=== PATIENT | male | born 1960 | race Caucasian/White ===

== ENCOUNTER 2016-03-30 08:27 | Day surgery (SDC) | payer MEDICARE, OTHER ==
[2016-03-24 11:19] VITALS: BMI 23.5
[2016-03-30 09:41] VITALS: RESP 16; TEMP 97.8
[2016-03-30] MEDS ORDERED: LACTATED RINGERS 1,000 ML IV ONE (09:51)
[2016-03-30] MEDS ORDERED: IOHEXOL 180 MG/ML 1 ML ML ONE (10:35)
[2016-03-30] MEDS ORDERED: BUPIVACAINE (PF) 0.5% 30 ML VIAL ONE (10:35)
[2016-03-30] MEDS ORDERED: TRIAMCINOLONE ACETONIDE 40 MG/ML 1 ML VIAL ONE (10:35)
[2016-03-30] MEDS ORDERED: fentaNYL (PF) 50 MCG/ML 2 ML AMP ONE (10:35)
[2016-03-30] MEDS ORDERED: MIDAZOLAM 2 MG/2 ML VIAL ONE (10:35)
--- NOTE | 2016-03-30 11:06 | FL ---
EXAMINATION TYPE: FL guided pain mgmt statistic DATE OF EXAM: 03/30/2016 10:55 AM FLUOROSCOPY Fluoroscopy time of 2 seconds was used during right SI joint injection. 2 image/s document/s the pro cedure.
[2016-03-30 11:13] VITALS: BP 118/78; PULSE 78
[2016-03-30] MEDS ORDERED: IV FLUID CONTINUATION 1,000 ML IV ONE (11:15)
[2016-03-30] MEDS ORDERED: LACTATED RINGERS 1,000 ML IV SCH (12:15)
--- NOTE | 2016-04-10 12:46 | P.PCN ---
Date of Procedure: 03/30/16 Anesthesia: [facility] – [place] Surgeon: Evan Quinonez Pathology: none sent Condition: stable Disposition: PACU Description of Procedure: PREOPERATIVE DIAGNOSIS: 1-Bilateral sacroiliitis. 2 Lumbar DDD POSTOPERATIVE DIAGNOSIS:. 1-Bilateral sacroiliitis. 2 Lumbar DDD PROCEDURES: Right Sacroiliac joint steroid injection with fluoroscopy ANESTHESIA: Local with 1% lidocaine; Conscious sedation with Versed/fentanyl. EBL: Minimal. PROCEDURE INDICATIONS: This patient with a history of low back pain secondary to sacroiliitis and lumbar DDD unresponsive to conservative management. Patient does not use any blood thinning medications. PROCEDURE DESCRIPTION: The patient was seen and identified in the preoperative area. Risks, benefits, complications, and alternatives were discussed with the patient (including but not limited to incomplete pain relief, bleeding, infection, nerve damage, and allergies to medications), the patient agreed to proceed with the procedure and signed the consent after all questions were answered. Patient was taken to the OR and time out was completed to verify proper patient , position, laterality of pain, and allergies. Pt was placed in the prone position and a pillow was placed under the abdomen to reduce lumbar lordosis. The lumbosacral area was prepped and draped in the usual sterile fashion. Critical pause was taken. Vital signs were closely monitored during the procedure. The fluoroscopic camera was placed in contralateral oblique view and right sacroiliiac joint lower pole was identified. After local infiltration with 1% lidocaine 2 ml, Subsequently, a 22-gauge 3.5 inch spinal needle was introduced into the posteroinferior aspect of the right sacroiliac joint under direct fluoroscopic visualization. Subsequently, 3 ml of a solution of a total of 3 ml solution containing total 2 mL of 0.5% preservative-free bupivacaine mixed with 40 mg of Kenalog was injected after negative aspiration for CSF, blood, and air and negative for paresthesia. Needle was withdrawn intact. Skin was cleansed, and bandages were applied. COMPLICATIONS: None. COMMENTS: DISPOSITION / PLANS: The patient was placed in a supine position and transferred to the recovery area in a stable condition for observation and was discharged from the recovery room after meeting discharge criteria. Home discharge instructions given to the patient by the staff. The patient was reexamined prior to discharge. The patient will schedule a follow up in clinic in 4-6 weeks.
== END 2016-03-30 11:27 | disposition home or self-care (01) ==
LOC: ORPAIN 08:27
PROVIDERS: ATTEND Anesthesiology
DX: M54.5 Low back pain (principal); M25.551 Pain in right hip; Z79.1 Long term (current) use of non-steroidal anti-inflammatories (NSAID); Z79.891 Long term (current) use of opiate analgesic; Z79.899 Other long term (current) drug therapy; Z88.8 Allergy status to other drugs, medicaments and biological substances
CPT/HCPCS: J2250; J3301; Q9965; J3010; G0260; 27096

== ENCOUNTER → 2016-04-27 | Outpatient (CLI) | payer MEDICARE, OTHER ==
[2016-04-27 14:47] VITALS: BP 135/90; PULSE 84; RESP 18
--- NOTE | 2016-04-28 21:32 | P.PN ---
Subjective This is follow-up visit for this patient with a history of severe and chronic low back pain and he was diagnosed with sacroiliitis, we have done sacroiliac joint steroid injections 2 first on January and then later on we did in February 2016, she didn't get good pain relief for 2-3 weeks after each injection and the pain came back,, and is currently on pain medications 1-Sterling 10/325 every 6 hours 2-Lyrica . 75 mg 3 times a day 3- baclofen 10 mg 3 times a day. 4-Motrin 600 mg 3 times a day Patient denies any side effects of the medication, denies excessive drowsiness or sleepiness, denies suicidal ideation, and reports that the current pain medication is NOT helping To control the pain and improve activity of daily living Physical Examinations : 1-Constitutiona : Cooperative , not in acute distress . 2-HEENT : nech ; supple , no Lymphadenopathy , no Thyromegaly , normal thyroid size . eyes : no ptosis , no icterus, no photophobia . ENT : normal of hearing , normal oropharynx , no Thrush . 3- Respiratory : Chest clear to auscultations Bilaterally , no wheezing , no Rhonchi . 4- Cardiovascular : regular rate and rhythem , S1 , S2 , no S3 , no S4. 5- Gastrointestinal : abdomen soft no tenderness , bowel sounds positive all four quadrents , no organomegally . 6- Genitourinary : Defferred . 7- neurologic : Cranial nerve II to XII intact , no focal neurological deffecit . 8-psychatric : alert , oriented X 3 , appropriate affect , intact judgment and insight . 9-Lymphatic : no Lymphadenopathy . 10- musculoskeltal : exams of the cervical spine = motor strength normal bilateral upper extremities exams of the Lumber spine = motor strength lower extremities ,thigh and legs .5/5 deep tendon reflexes : normal Knee Jerk , normal ankle Jerk . lumber facet Loading Test positive Sever tenderness over the Sacroiliac joint on the Right Assessment and plan = -Chronic low back pain secondary to right sacroiliitis, she had good results after the right sacroiliac joint steroid injection done twice but that was only for short time (few weeks after each injection ), patient will be good candidate to have right-sided L5-S1 dorsal ramus radiofrequency , and right- sided S1 S2 S3 lateral branches radiofrequency, procedure risk and benefits and alternatives were discussed with the patient and he agreed with the preceding - diagnoses, prognosis, and treatment options including but not limited to physical therapy, surgical interventions, interventional therapies and medication management including narcotics and adjuvant medication were discussed with the patient and all questions answered to the patient's satisfaction
== END | disposition home or self-care (01) ==
LOC: PNWHC3 13:26
PROVIDERS: ATTEND Specialist
DX: G89.29 Other chronic pain (principal); M46.1 Sacroiliitis, not elsewhere classified; Z79.899 Other long term (current) drug therapy
CPT/HCPCS: 99211

== ENCOUNTER 2016-06-08 12:11 | Day surgery (SDC) | payer MEDICARE, OTHER ==
[2016-06-08 12:44] VITALS: RESP 16; TEMP 98
[2016-06-08] MEDS: LACTATED RINGERS 1,000 ML IV SCH ×2 (12:46→13:09)
[2016-06-08] MEDS ORDERED: fentaNYL (PF) 50 MCG/ML 2 ML AMP ONE (13:14)
[2016-06-08] MEDS ORDERED: MIDAZOLAM 2 MG/2 ML VIAL ONE (13:14)
[2016-06-08] MEDS ORDERED: TRIAMCINOLONE ACETONIDE 40 MG/ML 1 ML VIAL ONE (13:14)
[2016-06-08] MEDS ORDERED: BUPIVACAINE (PF) 0.5% 30 ML VIAL ONE (13:14)
[2016-06-08] MEDS ORDERED: IV FLUID CONTINUATION 1,000 ML IV ONE (14:05)
--- NOTE | 2016-06-08 14:06 | P.PCN ---
Date of Procedure: 06/08/16 Procedure(s) Performed: PREOPERATIVE DIAGNOSIS: 1-Lumbosacral spondylosis with facet arthropathy without myelopathy. 2-Right sacroiliit. post operative Diagnosis: 1-Lumbosacral spondylosis with facet arthropathy without myelopathy. 2-Right sacroiliit. PROCEDURES: 1- Right radiofrequency thermocoagulation/ablation of the L5 dorsal ramus. 2- Right multi-site radiofrequency thermocoagulation/ablation of the S1, S2, and S3 lateral branchs. The procedure was performed using fluoroscopic guidance during needle placement to assure proper position and maximize safety . ANESTHESIA: LOCAL ANESTHESIA with Marcaine 0.5% 8 mL and IV sedation with versed 2 mg and Fentanyle 100 mcg EBL: NONE INDICATION/MEDICAL NECESSITY: History of low back pain secondary to right sacroiliitis and lumbosacral arthropathy unresponsive to more conservative treatments. The patient reported more than 50% relief of pain symptoms following 2 previous diagnostic blocks with Bupivacaine. PROCEDURE DESCRIPTION: The patient was seen and identified in the preoperative area. Risks, benefits, complications, and alternatives were discussed with the patient. The patient agreed to proceed with the procedure and signed the consent. Vital signs were checked before and after the procedure and they remained stable. Patient ambulated to the procedure room and time out was completed. The patient was placed in the prone position on the procedure table and a pillow was placed under the abdomen to reduce lumbar lordosis. The lumbosacral area was prepped and draped in the usual sterile fashion. Critical pause was taken. L5 Dorsal Ramus RF: Using right oblique fluoroscopy, the junction of the transverse process and the superior articular process of the right S1 vertebra, which correspond to the fluoroscopic image of the "eye of the Doug dog" was identified. Subsequently, a 10-cm 20 -gauge radiofrequency cannula with a 10-mm active tip was advanced under fluoroscopic guidance until contact was made with periosteum. At this level, the Sensory testing of the L5 dorsal ramus was performed at 50 Hz and 0 to 1 volt with production of concordant pain starting at 0.5 volt. Motor stimulation was done at 2.5 Hz with stimulation of mulitifidus muscle contration . No radicular symptoms or paresthesias were produced during the testing. Subsequently, the L5 dorsal ramus was subjected to a radiofrequency ablation at 80 degree celsius for 90 seconds . after 0.5% Bupivacaine 1 ml injected at each level after negative aspirations . The needle was withdrawn intact. S1, S3, and S3 Lateral Branch RF: The lateral margins of the Right S1, S2, and S3 foramina were identified using AP fluoroscopy. Under fluoroscopic guidance, three 10-cm 20 -gauge radiofrequency cannula with a 10-mm active tip were inserted at 8-10 mm peripheral to the posterior S1 foramen, at various locations using clock-face coordinates. The center of the clock was registered at the lateral margin of the foramen. The 2:30, 4:00, and 5:30 oclock positions were used. At this level , the sensory testing of the S1 lateral branch was performed at 50 Hz and 0 to 1 volt at the three levels with production of concordant pain starting at 0.5 volt. Motor stimulation was done at 2.5 Hz. No radicular symptoms or paresthesias were produced during the testing. Subsequently, the S1 lateral branch was subjected to a radiofrequency ablation at a mode of 90 seconds at 80 degrees Celsius at the 3 levels after negative motor and sensory testing and after injecting 0.5 ml of preservative free Bupivacaine 0.5 %. The same procedure was performed at the level of the S2 foramen. For the S3 foramen, only the 2:30 and 4:00 oclock positions were used. Sensory and motor testing followed by radiofrequency ablation were performed as described for the S1 and S2 foramina. The needle was withdrawn intact after each injection. COMPLICATIONS: The patient tolerated the procedure well without any acute complications. DISPOSTION/PLAN: The patient ambulated to the recovery area after the procedure in a stable condition for observation. Patient was reexamined prior to discharge. Patient was observed for 30 minutes in the recovery area and was discharged home, accompanied by an adult, after meeting discharged criteria. Discharge instructions were give to the patient by the staff. Patient was specifically instructed not to drive today and to rest for the rest of the day. The patient will schedule a follow up visit in the clinic in weeks or earlier if needed.
--- NOTE | 2016-06-08 14:16 | FL ---
EXAMINATION TYPE: FL guided pain mgmt statistic DATE OF EXAM: 06/08/2016 2:01 PM CLINICAL HISTORY: Low back and sacral pain. TECHNIQUE: Fluoroscopy. COMPARISON: None. FINDINGS: Fluoroscopic guidance was provided during pain relief procedure performed by Dr. Soler . A total of 13 seconds of fluoroscopic time was utilized during the procedure and several spot imag es are acquired. Images acquired shows needle localization in the lower lumbar spine and sacrum at m ultiple levels. IMPRESSION: As Above.
[2016-06-08 14:19] VITALS: BP 109/70; PULSE 82
== END 2016-06-08 14:56 | disposition home or self-care (01) ==
LOC: ORPAIN 12:11
PROVIDERS: ATTEND Specialist
DX: M47.817 Spondylosis without myelopathy or radiculopathy, lumbosacral region (principal); M46.97 Unspecified inflammatory spondylopathy, lumbosacral region; M46.1 Sacroiliitis, not elsewhere classified; Z88.8 Allergy status to other drugs, medicaments and biological substances
CPT/HCPCS: 64640 ×2; 64635; 99152; 99153 ×2; J2250; J3301; J3010

== ENCOUNTER → 2018-10-14 | Outpatient (CLI) | payer MEDICARE, OTHER ==
[2018-10-14 13:36] VITALS: BP 134/83; PULSE 62; RESP 16
--- NOTE | 2018-10-15 15:34 | P.PAINPG ---
Subjective Progress Note Date: 10/14/18 This is follow-up visit for this 58-year-old male patient with a history of severe and chronic low back pain and he was diagnosed with sacroiliitis, we have done sacroiliac joint steroid injections 2 followed by SI joint radiofrequency ablation done in May 2016. He returns today for follow-up. Today, he reports that approximately one month ago, he was walking up a hill and he stepped into a small hole. Since then he has bilateral low back pain radiating to bilateral groins, right worse than left. Pain is described as sharp. He was recently switched from [place] to Percocet by his PCP Dr. Ibarra , and reports no significant relief from this. Pain is worse with sitting, standing for too long. Pain is better with movement, using a spot. Pain is rated as 7-8 on 10 today. Of note, the patient has not had any recent imaging. Patient denies any side effects of the medication, denies excessive drowsiness or sleepiness, denies suicidal ideation, and reports that the current pain medication is NOT helping To control the pain and improve activity of daily living Review of systems is negative for chest pain, shortness of breath, new onset weakness, numbness/tingling, abdominal pain, malaise, fever, night sweats, chills, homicidal or suicidal ideation, or bowel or bladder incontinence. Physical exam: Vitals: Reviewed in EMR GENERAL: Well appearing, in no acute distress PSYCH: Mood and affect is appropriate. Awake, alert, and oriented SKIN: Skin color, texture, turgor normal, no rashes or lesions HEENT: Normocephalic, atraumatic. EOM intact CV: No pedal edema RESP: Respirations are unlabored, no audible wheezing GI: Abdomen non-distended MUSCULOSKELETAL: Bilateral upper and lower extremity strength is normal and symmetric. No atrophy or tone abnormalities are noted. Lumbar spine: Straight leg raising in the sitting position is negative for radicular pain. No pain to palpation over the lumbar spine and paraspinous muscles. Negative for pain with facet loading and back extension/rotation. Normal range of motion without pain reproduction Buttocks: No pain to palpation over the PSIS, sacroiliac joint maneuvers are negative for pain. Extremities: Peripheral joint ROM is full and pain free without obvious instability or laxity in all four extremities. No edema or skin discolorations noted. Gait: Gait is normal NEUR: Bilateral lower extremity coordination and muscle stretch reflexes are physiologic and symmetric. Negative clonus bilaterally. No loss of sensation is noted. Assessment and plan = Acute onset low back pain radiating to bilateral groins. Patient denies red flag signs. Physical exam is reassuring. We will obtain lumbar spine x-rays and lumbar spine MRI to further evaluate current pain complaint. -Right sacroiliitis: Patient has experienced good relief in the past from SI joint radiofrequency ablation. Follow-up: After lumbar MRI obtained PQRS Measure Charge Sheet Measure #130: Documentation of Current Meds in Medical Chart: Patient's medications documented in chart Measure #226: Tobacco Use: Screen & Cessation Intervention: Pt screened for tobacco use AND intervention given Measure #111: Pneumonia Vaccination: Pneumococcal vaccine NOT administered or previously given Measure #47: Advance Care Plan: Advance care planning discussed & documented, pt chose/unable to give Measure #412: Opioid Treatment Agreement: No documentation of signed opioid treatment agreement Measure #317: Preventitive Care & Scrn High Bld Press & F/U: Normal blood pressure, f/u not required Measure #128: Body Mass Index (BMI) Screening & Follow-up: BMI documented within normal parameters Measure #131: Pain Assessment & Follow-up: Pain positive & plan documented, Follow-up scheduled Measure #431: Unhealthy Alcohol Use Preventative Care & Scrn: Patient not identified as an unhealthy alcohol user PQRS Narrative: Smoking Status Current every day smoker Hx Alcohol Use (MH) Yes: OCC. Home Medications: Ambulatory Orders Ibuprofen 600 mg PO Q8H PRN 08/24/15 oxyCODONE-APAP 10-325MG [Percocet 10-325 mg] 1 tab PO Q4HR PRN 10/14/18 Controlled Substance Measures - Controlled Substance Measures Is patient prescribed a controlled substance at discharge?: No
== END | disposition home or self-care (01) ==
LOC: PNWHC3 12:35
PROVIDERS: ATTEND Anesthesiology
DX: G89.29 Other chronic pain (principal); M54.16 Radiculopathy, lumbar region; M46.1 Sacroiliitis, not elsewhere classified; F17.200 Nicotine dependence, unspecified, uncomplicated; Z98.890 Other specified postprocedural states; Z79.891 Long term (current) use of opiate analgesic
CPT/HCPCS: 99211

== ENCOUNTER → 2018-10-25 | Outpatient (CLI) | payer MEDICARE, OTHER ==
--- NOTE | 2018-10-25 13:59 | XR ---
Lumbar spine HISTORY: Trauma, back pain 3 views of the lumbar spine Correlation prior exam 04/07/2012 There is multilevel spondylosis. Lumbar vertebral bodies show preserved height and alignment. There i s loss of disc height L4-5, L5-S1, L1-2. Sclerosis present in the posterior elements. Vascular calcif ications noted in the aortoiliac distribution. Possible sclerotic focus at the right sacral measuring 9 mm. IMPRESSION: Degenerative disc disease and facet arthropathy. Indeterminate area of increased attenuat ion over the right sacrum is an interval finding and is indeterminate. No fracture or subluxation.
--- NOTE | 2018-10-25 15:58 | MR ---
EXAMINATION TYPE: MR lumbar spine wo con DATE OF EXAM: 10/25/2018 COMPARISON: Film same date HISTORY: Chronic LBP, BLE radic TECHNIQUE: Multiplanar, multisequence images of the lumbar spine were acquired. L1-L2: Lateral extension of disc material towards the right causes foraminal encroachment, suspect a lateral disc herniation. No significant central stenosis. L2-L3: Posterior broad-based disc bulge causes mild anterior mass effect on the thecal sac. No eviden t spinal stenosis. Right-sided foraminal encroachment present due to lateral extension endplate disc complex. L3-L4: Posterior broad-based disc bulge causes mild anterior mass effect on the thecal sac. Mild cent ral stenosis. No significant foraminal encroachment on the right, circumferential extension endplate disc complex encroaches somewhat on the left neural foramen. Facet arthropathy with hypertrophy ligam entum flavum causes some minimal posterior lateral mass effect on the thecal sac. L4-L5: Central posterior disc herniation causes anterior mass effect on the thecal sac. There is mode rate central stenosis. Circumferential extension endplate disc complex encroaches somewhat on the mc ral foramen greater on the right. L5-S1: Posterior central disc herniation causes anterior mass effect on the thecal sac, mild central stenosis. Circumferential extension of endplate disc complex encroaches somewhat on the foramina. The re may be some encroachment on the lateral recesses due to facet arthropathy change. Lumbar segments are intact. No paraspinal masses are identified. Conus medullaris has a normal appe arance. Minimal retrolisthesis grade 1 L5-S1. Lumbar vertebral bodies show preserved height and align ment. There is multilevel spondylosis with minimal endplate discogenic marrow signal change. Loss of disc height signal at intervertebral levels is compatible with disc desiccation and degenerative disc disease. Short pedicles may contribute to cause multilevel spinal stenosis. IMPRESSION: Degenerative disc disease, facet arthropathy, multilevel foraminal encroachment as described.
== END | disposition home or self-care (01) ==
LOC: RADMRIMAIN 13:22
PROVIDERS: ATTEND Anesthesiology
DX: M51.36 Other intervertebral disc degeneration, lumbar region (principal); M46.96 Unspecified inflammatory spondylopathy, lumbar region
CPT/HCPCS: 72100; 72148

== ENCOUNTER → 2018-10-28 | Outpatient (CLI) | payer MEDICARE, OTHER ==
[2018-10-28 12:14] VITALS: BP 133/78; PULSE 72; RESP 16
--- NOTE | 2018-10-28 15:41 | P.PAINPG ---
Subjective Progress Note Date: 10/28/18 This is a follow-up visit for this 58-year-old male patient with a history of severe and chronic low back pain and he was diagnosed with sacroiliitis, we have done sacroiliac joint steroid injections 2 followed by SI joint radiofrequency ablation done in May 2016. He was last seen in clinic on 10/14/2018, and at that time a lumbar spine x-ray and MRI were ordered. See results below. He returns today for follow-up. He reports that approximately one and a half month ago, he was walking up a hill and he stepped into a small hole. Since then he has bilateral low back pain radiating to bilateral buttock and groins, left worse than right. Pain is described as sharp. He was recently switched from [place] to Percocet by his PCP Dr. Ibarra , and reports no significant relief from this. Pain is worse with sitting, standing for too long. Pain is better with movement. He also reports that recently he has right-sided neck stiffness, he has benefited greatly from trigger point injections in the past and is asking if this could be repeated. Review of systems is negative for chest pain, shortness of breath, new onset weakness, numbness/tingling, abdominal pain, malaise, fever, night sweats, chills, homicidal or suicidal ideation, or bowel or bladder incontinence. Physical exam: Vitals: Reviewed in EMR GENERAL: Well appearing, in no acute distress PSYCH: Mood and affect is appropriate. Awake, alert, and oriented SKIN: Skin color, texture, turgor normal, no rashes or lesions HEENT: Normocephalic, atraumatic. EOM intact CV: No pedal edema RESP: Respirations are unlabored, no audible wheezing GI: Abdomen non-distended MUSCULOSKELETAL: Bilateral upper and lower extremity strength is normal and symmetric. No atrophy or tone abnormalities are noted. Cervical spine: Tenderness to palpation of right cervical paraspinal musculature. Normal range of motion. Negative Spurling sign. Lumbar spine: Straight leg raising in the sitting position is positive on the left side for radicular pain. No pain to palpation over the lumbar spine and paraspinous muscles. Negative for pain with facet loading and back extension/rotation. Normal range of motion without pain reproduction Buttocks: No pain to palpation over the PSIS, sacroiliac joint maneuvers are neg ative for pain. Extremities: Peripheral joint ROM is full and pain free without obvious instability or laxity in all four extremities. No edema or skin discolorations noted. Gait: Gait is normal NEUR: Bilateral lower extremity coordination and muscle stretch reflexes are physiologic and symmetric. Negative clonus bilaterally. No loss of sensation is noted. Imaging: Lumbar spine x-ray done on 10-25-2018 at [place] shows no acute fractures. Possible sclerotic focus at right sacrum. Lumbar spine MRI done on 10-25-2018 at [place] shows degenerative disc disease, facet arthropathy and multilevel neuroforaminal encroachment. Short pedicles may contribute to multilevel canal stenosis. At L2-3, right greater than left neuroforaminal stenosis, at L3-4 left greater than right neuroforaminal stenosis. At L4-5 moderate central canal stenosis and right greater than left neuroforaminal stenosis. At L5-S1 mild central canal stenosis with bilateral neuroforaminal stenosis. Assessment and plan = Lumbar radiculopathy, lumbar spondylosis, lumbar degenerative disc disease: We'll schedule L4-5 epidural steroid injection, left paramedian approach Cervical myofascial pain: Will schedule right cervical paraspinals, trapezius, rhomboids trigger point injection -Right sacroiliitis: Patient has experienced good relief in the past from SI joint radiofrequency ablation. Patient was counseled on the importance of smoking cessation as it pertains to Gen. health as well as specifically to chronic pain Patient was instructed to follow up with his PCP regarding right sacral sclerotic focus seen on x-ray Follow-up: For above-mentioned procedure PQRS Measure Charge Sheet Measure #130: Documentation of Current Meds in Medical Chart: Patient's medications documented in chart Measure #226: Tobacco Use: Screen & Cessation Intervention: Pt screened for tobacco use AND intervention given Measure #111: Pneumonia Vaccination: Pneumococcal vaccine NOT administered or previously given Measure #47: Advance Care Plan: Advance care planning discussed & documented, pt chose/unable to give Measure #412: Opioid Treatment Agreement: No documentation of signed opioid treatment agreement Measure #317: Preventitive Care & Scrn High Bld Press & F/U: Normal blood pressure, f/u not required Measure #128: Body Mass Index (BMI) Screening & Follow-up: BMI documented within normal parameters Measure #131: Pain Assessment & Follow-up: Pain positive & plan documented, Follow-up scheduled Measure #431: Unhealthy Alcohol Use Preventative Care & Scrn: Patient not identi fied as an unhealthy alcohol user PQRS Narrative: Smoking Status Current every day smoker Hx Alcohol Use (MH) Yes: OCC. Home Medications: Ambulatory Orders Ibuprofen 600 mg PO Q8H PRN 08/24/15 oxyCODONE-APAP 10-325MG [Percocet 10-325 mg] 1 tab PO Q4HR PRN 10/14/18 Controlled Substance Measures - Controlled Substance Measures Is patient prescribed a controlled substance at discharge?: No
== END | disposition home or self-care (01) ==
LOC: PNWHC3 11:41
PROVIDERS: ATTEND Anesthesiology
DX: G89.29 Other chronic pain (principal); M51.16 Intervertebral disc disorders with radiculopathy, lumbar region; M47.26 Other spondylosis with radiculopathy, lumbar region; M46.1 Sacroiliitis, not elsewhere classified; M54.2 Cervicalgia; F17.200 Nicotine dependence, unspecified, uncomplicated; Z98.890 Other specified postprocedural states
CPT/HCPCS: 99211

== ENCOUNTER 2018-11-04 06:17 | Day surgery (SDC) | payer MEDICARE, OTHER ==
[2018-10-30 10:36] VITALS: BMI 24.7
[~2018-11-04 06:17] MED LIST: LACTATED RINGERS 1,000 ML IV SCH
[2018-11-04] MEDS ORDERED: LACTATED RINGERS 1,000 ML IV ONE (07:00)
[2018-11-04 07:39] VITALS: RESP 16; TEMP 96.9
[2018-11-04] MEDS ORDERED: IV FLUID CONTINUATION 1,000 ML IV ONE ×2 (07:54)
--- NOTE | 2018-11-04 07:58 | FL ---
EXAMINATION TYPE: FL guided pain mgmt statistic DATE OF EXAM: 11/04/2018 HISTORY: Pain 3 FILMS 2 SEC FL
[2018-11-04 08:16] VITALS: BP 113/74; PULSE 62
--- NOTE | 2018-11-04 08:44 | P.PCN ---
Date of Procedure: 11/04/18 Procedure(s) Performed: PREOPERATIVE DIAGNOSIS: 1- Lumbar radiculopathy, Lumbar Degenerative Disc Diseases 2-Lumbar spondylosis with Facet arthropathy without myelopathy POSTOPERATIVE DIAGNOSIS: 1-Lumber Degenerative Disc Diseases 2-Lumbar spondylosis with Facet arthropathy without myelopathy PROCEDURE 1. Lumbar epidural steroid injection under fluoroscopic guidance at the L4-5 level using a left paramedian approach 2. Lumbar epidurogram. ANESTHESIA: Local with 1% lidocaine 3 ml, moderate sedation with intravenous Versed and fentanyl Fluoroscopy was used for the procedure and images were saved in the radiology portion of the chart. EBL: Minimal PROCEDURE INDICATION: The patient with low back pain and radiculitis symptoms unresponsive to conservative treatment. Fluoroscopy was used to optimize visualization of the needle placement and to maximize safety. PROCEDURE DESCRIPTION / TECHNIQUE: The patient was seen and identified in the preoperative area. Risks, benefits, complications including but not limited to infections ,bleeding ,allergic reaction to the medications ,nerve damage and incomplete pain releif , and alternatives were discussed with the patient. The patient agreed to proceed with the procedure and signed the consent. IV was started, and vital signs were stable. Patient was taken to the OR and time out was completed. The patient was placed in the prone position on procedure table and a pillow was placed under the abdomen to reduce lumbar lordosis. The lumbosacral area was prepped and draped in the usual sterile fashion. Vitals were closely monitored during the procedure. Conscious sedation was used during the procedure to decrease patients anxiety. Using anterior-posterior fluoroscopy, the L4-5 interlaminar space was identified and the skin over this site was marked and then infiltrated with 1% lidocaine subcutaneously. Subsequently, a 20-gauge 3.5" Tuohy epidural needle was inserted and advanced toward the epidural space using the loss of resistance technique and guided by AP and lateral/ oblique fluoroscopy. The correct needle position in the epidural space was verified with the injection of 2 mL of the water soluble contrast dye Isovue 200 contrast under live fluoroscopy, observing an excellent epidurogram. Then, after negative aspiration for blood and CSF and in the absence of paresthesias, a 5 ml mixture containing 80 mg of Depo-medrol , 3 ml of preservative free Normal Saline, and 1 ml of preservative free lidocaine 1% solution was injected and a washout epidurogram was seen. Needle was withdrawn intact, skin was cleansed, and bandages were applied. COMPLICATIONS: None Then, my attention was turned to the trigger point injections in the neck. Procedure below: Preoperative Diagnosis: myofascial pain syndrome of bilateral cervical paraspinals, rhomboids, trapezius Postoperative diagnosis: Same Indications for procedure: This is a patient with myofascial pain and palpable trigger points in bilateral cervical paraspinals, rhomboids, trapezius muscles. The patient consents for an injection after an explanation of risks including but not limited to bleeding and infection, benefits, and alternatives and the patient has signed a consent form indicating understanding of all of them. Description of procedure: After informed consent was obtained the patient's back was sterilely prepped in the usual fashion with ChloraPrep. 8 trigger points were identified via palpation of the indicated muscles and marked sterilely. Each trigger point was injected with a 25-gauge half inch needle, with 1 mL of solution consisting of ropivacaine 0.5%. The patient's vital signs were stable afterwards and the procedure was tolerated well. DISPOSITION / PLANS: The patient was placed in a supine position and transferred to the recovery area in a stable condition for observation. There was no evidence of lower extremity motor or sensory deficit after the procedure. Patient was discharged from the recovery room after meeting discharge criteria. Home discharge instructions were given to the patient by the staff. The patient will schedule a follow up in the clinic in 4 weeks.
== END 2018-11-04 08:22 | disposition home or self-care (01) ==
LOC: ORPAIN 06:17
PROVIDERS: ATTEND Anesthesiology
DX: M51.16 Intervertebral disc disorders with radiculopathy, lumbar region (principal); M47.26 Other spondylosis with radiculopathy, lumbar region; M79.18 Myalgia, other site; M48.061 Spinal stenosis, lumbar region without neurogenic claudication; M48.07 Spinal stenosis, lumbosacral region; M46.1 Sacroiliitis, not elsewhere classified; Z79.891 Long term (current) use of opiate analgesic; Z79.1 Long term (current) use of non-steroidal anti-inflammatories (NSAID)
CPT/HCPCS: 62323; 20553; J2250; J1030; J3010; Q9966; 99152

== ENCOUNTER → 2018-12-02 | Outpatient (CLI) | payer MEDICARE, OTHER ==
[2018-12-02 12:38] VITALS: BP 124/82; PULSE 84; RESP 18
--- NOTE | 2018-12-02 13:25 | P.PAINPG ---
Subjective Progress Note Date: 12/02/18 This is a follow-up visit for this 58 years old male, with chronic history of severe low back pain patient diagnosed with lumbar herniated disc disease and lumbar spondylosis and lumbar facet arthropathy, and sacroiliitis, and he had severe neck pain related trigger point injection, patient here for follow-up visit. He reported that he has significant improvement of his low back pain but he continued to have low back pain with radiation to the right buttock, and he had some neck pain, with radiation to the right shoulder blade area, he denies any motor or sensory deficits he is able to ambulate, he denies any fever or night sweats. Denies any change in bowel movements or urination, currently he uses Percocet and Motrin he is getting prescription refills from his primary care and he denies any side effects of the medication Objective - Vital Signs Vital signs: Vital Signs Temp Pulse 84 12/02/18 12:31 Resp 18 12/02/18 12:31 BP 124/82 12/02/18 12:31 Pulse Ox 99 12/02/18 12:31 Intake & Output 12/01/18 12/02/18 12/02/18 18:59 06:59 18:59 Weight 73.482 kg - Exam Physical Examinations : -Constitutiona : Cooperative , not in acute distress . -HEENT : nech : supple , no Lymphadenopathy , normal thyroid size . eyes : no ptosis , no icterus, no photophobia . ENT : normal of hearing , normal oropharynx , no Thrush . - Respiratory : Chest clear to auscultations Bilaterally , no wheezing , no Rhonchi . - Cardiovascula : regular rate and rhythem , S1 , S2 , no S3 , no S4. - Gastrointestina : abdomen soft no tenderness , bowel sounds , no organomegally . - Genitourinary : Defferred . - neurologic : Cranial nerve II to XII intact , no focal neurological deffecit . -psychatric : alert , oriented X 3 , appropriate affect , intact judgment and insight . -Lymphatic : no Lymphadenopathy . - musculoskeltal : Cervical Spine motor stregnth in the deltoid and biceps, normal right side , normal Left side motor stregnth biceps and the wrist extensors normal right side ,normal left side . motor stregnth in the triceps muscle . normal Right side , normal Left side Trigger point identified in the right trapezius rhomboid and shoulder blade area. Lumber spine moter stegnth lower extremities ,thigh and legs 5/5 Right side , 5/5 Left side deep tendon reflexes : normal Knee Jerk , normal ankle Jerk positive lumber facet Loading Test Range of motion of the lumbar spine Flexion 30 degrees, extension 10 degrees strait leg raising test , positive at 45degree Fabere test positive RT and positive LT . Sever tenderness over the Sacroiliac joint on the Right Gaenslen test positive on the right side Seated flexion test positive on the right Assessment and Plan Assessment: Assessment and plan=1 lumbar herniated disc disease 2-lumbar spondylosis with lumbar facet arthropathy 3-right sacroiliitis 4-myofascial pain syndrome right-sided cervical area, and shoulder blade area. Patient could benefit from repeat lumbar epidural steroid injection at L4 5 levels , and he could benefit from trigger point injections right- sided cervical paravertebral muscles and shoulder blade area. In the future if patient continues to have right buttock pain, he will be good candidate to have a repeat RFA of the right sacroiliac joint (Done previously May 2016 ) Avery continue to use Percocet and Motrin and is getting prescription refills from his primary care Time with Patient: Less than 30 PQRS Measure Charge Sheet Measure #130: Documentation of Current Meds in Medical Chart: Patient's medications documented in chart Measure #226: Tobacco Use: Screen & Cessation Intervention: Pt screened for tobacco use AND intervention given Measure #111: Pneumonia Vaccination: Pneumococcal vaccine NOT administered or previously given Measure #47: Advance Care Plan: Advance care planning discussed & documented, pt chose/unable to give Measure #412: Opioid Treatment Agreement: No documentation of signed opioid treatment agreement Measure #408: Opioid Therapy Follow-up Evaluation: Patient had NO f/u eval minimum every 3 months during opioid therapy Measure #317: Preventitive Care & Scrn High Bld Press & F/U: Normal blood pressure, f/u not required Measure #128: Body Mass Index (BMI) Screening & Follow-up: BMI documented within normal parameters Measure #131: Pain Assessment & Follow-up: Pain positive & plan documented, Follow-up scheduled Measure #431: Unhealthy Alcohol Use Preventative Care & Scrn: Patient not identified as an unhealthy alcohol user PQRS Narrative: Smoking Status Current every day smoker Blood Pressure 124/82 Pain Intensity [Lower Back] 8 Scale Used Numeric (1 - 10) Hx Alcohol Use (MH) Yes: OCC. Home Medications: Ambulatory Orders Ibuprofen 600 mg PO Q8H PRN 08/24/15 oxyCODONE-APAP 10-325MG [Percocet 10-325 mg] 1 tab PO Q4HR PRN 10/14/18 Prendisone 1 tab PO DIRECTED 12/02/18 Controlled Substance Measures - Controlled Substance Measures Is patient prescribed a controlled substance at discharge?: No
== END ==
LOC: PNWHC3 12:02
PROVIDERS: ATTEND Specialist
DX: M51.26 Other intervertebral disc displacement, lumbar region (principal); M47.816 Spondylosis without myelopathy or radiculopathy, lumbar region; M46.96 Unspecified inflammatory spondylopathy, lumbar region; M46.1 Sacroiliitis, not elsewhere classified; M79.18 Myalgia, other site; Z79.1 Long term (current) use of non-steroidal anti-inflammatories (NSAID); Z79.891 Long term (current) use of opiate analgesic; Z79.899 Other long term (current) drug therapy; F17.200 Nicotine dependence, unspecified, uncomplicated
CPT/HCPCS: 99211

== ENCOUNTER 2018-12-17 07:23 | Day surgery (SDC) | payer MEDICARE, OTHER ==
[2018-12-16 08:58] VITALS: BMI 24.6
[2018-12-17 07:47] VITALS: TEMP 97.5
[2018-12-17] MEDS ORDERED: IV FLUID CONTINUATION 1,000 ML IV ONE (08:48)
--- NOTE | 2018-12-17 08:48 | P.PCN ---
Date of Procedure: 12/17/18 Procedure(s) Performed: PREOPERATIVE DIAGNOSIS: Lumbar radicular pain POSTOPERATIVE DIAGNOSIS: Same PROCEDURE Lumbar epidural steroid injection under fluoroscopic guidance at the L4-L5 level. ANESTHESIA: Local with 1% lidocaine 3 ml; moderate sedation with 1 mg of midazolam and 50 g of fentanyl EBL: Minimal PROCEDURE INDICATION: Lumbar radicular pain. PROCEDURE DESCRIPTION / TECHNIQUE: The patient was seen and identified in the preoperative area. Risks, benefits, complications including but not limited to infections ,bleeding ,allergic reaction to the medications ,nerve damage and not complete pain relief , and alternatives were discussed with the patient. The patient agreed to proceed with the procedure and signed the consent. IV was started, and vital signs were stable. Patient was taken to the OR and time out was completed. The patient was placed in the prone position on procedure table and a pillow was placed under the abdomen to reduce lumbar lordosis. The lumbosacral area was prepped and draped in the usual sterile fashion. The patient was closely monitored during the procedure. Conscious sedation was used during the procedure to decrease patients anxiety. Vital signs was monitored during the entire procedure. Using anterior-posterior fluoroscopy, the L4-L5 interlaminar space was identified and the skin over this site was marked and then infiltrated with 1% lidocaine subcutaneously. Subsequently, a 20-gauge Tuohy epidural needle was inserted and advanced toward the epidural space using the loss of resistance technique and guided by AP and lateral fluoroscopy. The correct needle position in the epidural space was verified. After negative aspiration, a solution containing 80 mg of Depo-Medrol, 2 mL of preservative-free 1% lidocaine, 2 mL of preservative-free normal saline was injected. The needle was withdrawn intact, skin was cleansed, and bandages were applied. Images were saved to the chart. COMPLICATIONS: None Preoperative Diagnosis: myofascial pain syndrome of right cervical paraspinals, trapezius, rhomboids Postoperative diagnosis: Same Anesthesia: Local Physician: Dayron Estimated blood loss: 0 ml Indications for procedure: The patient consents for an injection after an explanation of risks including but not limited to bleeding and infection, benefits, and alternatives and the patient has signed a consent form indicating understanding of all of them. Description of procedure: After informed consent was obtained the patient's back was sterilely prepped in the usual fashion with ChloraPrep. 6 trigger points were identified via palpation of the XX muscles and marked sterilely. Each trigger point was injected with a 25-gauge half inch needle, with 1 mL of .5 ropivicaine for total 6 mls. The patient's vital signs were stable afterwards and the procedure was tolerated well. Patient was discharged home with follow-up instructions. He will follow up in clinic in a few weeks.
[2018-12-17 09:03] VITALS: PULSE 78; RESP 18
[2018-12-17 09:08] VITALS: BP 137/78
--- NOTE | 2018-12-17 09:18 | FL ---
EXAMINATION TYPE: FL guided pain mgmt statistic DATE OF EXAM: 12/17/2018 FLUOROSCOPY Fluoroscopy time of 5 seconds was used during lumbar epidural steroid injection. 2 image/s document/ s the procedure.
== END 2018-12-17 09:18 | disposition home or self-care (01) ==
LOC: ORPAIN 07:23
PROVIDERS: ATTEND Student in an Organized Health Care Education/Training Program
DX: M54.16 Radiculopathy, lumbar region (principal); M79.18 Myalgia, other site; Z88.8 Allergy status to other drugs, medicaments and biological substances
CPT/HCPCS: 20553; 62323; J2250; J1030; J3010; Q9966; 99152

== ENCOUNTER → 2019-01-21 | Outpatient (CLI) | payer MEDICARE, OTHER ==
[2019-01-21 13:25] VITALS: BP 134/86; PULSE 73; RESP 15
--- NOTE | 2019-01-21 14:12 | P.PAINPG ---
Subjective Progress Note Date: 01/21/19 This is a follow-up visit 58 years old male who had chronic low back pain. He is diagnosed with lumbar radiculopathy, lumbar spondylosis with lumbar facet arthropathy, and right sacroiliitis, recently we have done lumbar epidural steroid injections x2 , and that helps his lumbar radicular pain, and 2017 p semaj was complaining of severe low back pain mainly on the right side and we have done RFA of the right sacroiliac joint, and the patient complaining of similar pain mainly in the right-sided low back area with radiation to the right buttock, he denies any motor or sensory deficits he denies any fever or night sweats and that is no change in bowel movement or urination, currently he is using Motrin 600 mg when necessary and Percocet 10/325 every 6 hours when necessary honeys getting prescription refills from his primary care. Objective - Vital Signs Vital signs: Vital Signs Temp Pulse 73 01/21/19 13:23 Resp 15 01/21/19 13:23 BP 134/86 01/21/19 13:23 Pulse Ox - Exam Physical Examinations : -Constitutiona : Cooperative , not in acute distress . -HEENT : nech : supple , no Lymphadenopathy , normal thyroid size . eyes : no ptosis , no icterus, no photophobia . - neurologic : Cranial nerve II to XII intact , no focal neurological deffecit . -psychatric : alert , oriented X 3 , appropriate affect , intact judgment and insight . -Lymphatic : no Lymphadenopathy . - musculoskeltal : Lumber spine moter stegnth lower extremities ,thigh and legs 5/5 Right side , 5/5 Left side deep tendon reflexes : normal Knee Jerk , normal ankle Jerk positive lumber facet Loading Test Range of motion of the lumbar spine Flexion 60 degrees, extension 30 degrees strait leg raising test = negative bilaterally Fabere test= negative bilaterally. Sever tenderness over the Sacroiliac joint on the right side Gaenslen test positive on the right side. Seated flexion test positive on the right side. Assessment and Plan Plan: Assessment and plan=1-lumbar radiculopathy. 2-lumbar degenerative disc disease, 3-lumbar spondylosis with lumbar facet arthropathy. Pain improved after lumbar epidural steroid injections. 4-right sacroiliitis-patient had excellent pain relief after radiofrequency ablation of the right sacroiliac joint which was done 2 years ago Patient could benefit from repeat RFA of the right sacroiliac joint (radiofrequency thermocoagulation of the L5-S1 dorsally Ramas Hand radiofrequency thermocoagulation of the lateral branches of S1/S2/S3 ) Time with Patient: Less than 30 PQRS Measure Charge Sheet Measure #130: Documentation of Current Meds in Medical Chart: Patient's medications documented in chart Measure #226: Tobacco Use: Screen & Cessation Intervention: Pt screened for tobacco use AND intervention given Measure #111: Pneumonia Vaccination: Pneumococcal vaccine NOT administered or previously given Measure #47: Advance Care Plan: Advance care planning discussed & documented, pt chose/unable to give Measure #412: Opioid Treatment Agreement: No documentation of signed opioid treatment agreement Measure #408: Opioid Therapy Follow-up Evaluation: Patient had NO f/u eval minimum every 3 months during opioid therapy Measure #317: Preventitive Care & Scrn High Bld Press & F/U: Normal blood pressure, f/u not required Measure #128: Body Mass Index (BMI) Screening & Follow-up: BMI documented within normal parameters Measure #131: Pain Assessment & Follow-up: Pain positive & plan documented, Follow-up scheduled Measure #431: Unhealthy Alcohol Use Preventative Care & Scrn: Patient not identified as an unhealthy alcohol user PQRS Narrative: Smoking Status Current every day smoker Blood Pressure 134/86 Pain Intensity [Lower Back] 6 Pain Intensity [Neck] 6 Scale Used Numeric (1 - 10) Hx Alcohol Use (MH) Yes: OCC. Home Medications: Ambulatory Orders Ibuprofen 600 mg PO Q8H PRN 08/24/15 oxyCODONE-APAP 10-325MG [Percocet 10-325 mg] 1 tab PO Q4HR PRN 10/14/18 Controlled Substance Measures - Controlled Substance Measures Is patient prescribed a controlled substance at discharge?: No
== END | disposition home or self-care (01) ==
LOC: PNWHC3 12:39
PROVIDERS: ATTEND Specialist
DX: M51.16 Intervertebral disc disorders with radiculopathy, lumbar region (principal); M47.26 Other spondylosis with radiculopathy, lumbar region; M46.96 Unspecified inflammatory spondylopathy, lumbar region; M46.1 Sacroiliitis, not elsewhere classified; F17.200 Nicotine dependence, unspecified, uncomplicated; Z98.890 Other specified postprocedural states; Z79.899 Other long term (current) drug therapy
CPT/HCPCS: 99211

== ENCOUNTER 2019-01-30 08:53 | Day surgery (SDC) | payer MEDICARE, OTHER ==
[2019-01-28 13:13] VITALS: BMI 24.6
[2019-01-30 09:17] VITALS: TEMP 97.8
[2019-01-30] MEDS ORDERED: LACTATED RINGERS 1,000 ML IV ONE (09:17)
[2019-01-30] MEDS ORDERED: LIDOCAINE 1% 20 ML VIAL (10MG/ML) FOR IV START INTRADERMA ONE (09:18)
--- NOTE | 2019-01-30 10:50 | P.PCN ---
Date of Procedure: 01/30/19 Procedure(s) Performed: Bipolar Radiofrequency Ablation of Dorasal Ramus of L5, Lateral Branches of S1 and S2 ATTENDING PHYSICIAN: Alexx Moore MD PREOPERATIVE DIAGNOSIS: Right Sacroiliac Joint Pain/ sacroilitis POSTOPERATIVE DIAGNOSIS: same PROCEDURE PERFORMED: Bipolar Radiofrequency Ablation of Dorasal Ramus of L5, Lateral Branches of S1, S2 and S3 SIDE: Right IV SEDATION moderate sedation with Versed and fentanyl , sedation time 33 minutes ESTIMATED BLOOD LOSS: None FLUOROSCOPY WAS USED. Images were saved in the radiology portion of the chart. INDICATIONS FOR PROCEDURE: Patient has a clinical picture consistent with right sacroiliac joint dysfunction and has responded well to sacral radiofrequency ablation in the past. PROCEDURE AND FINDINGS: The patient was greeted in the pre procedure holding area. The risk, benefits and alternatives to the procedure were again reviewed with the patient and written informed consent was placed in the chart. Prior to the procedure a time out was completed, verifying correct patient, procedure, site, positioning, and implants and/or special equipment. An IV line was placed. The patient was taken to the procedure room and positioned prone on the fluoroscopy table. Routine monitors were applied including EKG leads, blood pressure cuff, and pulse oximetry. The skin was prepped with chlorhexidine and draped in the usual sterile fashion. A fluoroscopic AP view was used to identify the sacral ala and the right SI joint with the associated S1-S3 foramens medial to the SI joint line. A marker was used to judy the sacral ala and the lateral aspects of the S1-S3 foramen. Mcintosh were made 1 cm apart. Then overlying skin and subcutaneous tissues were anesthetized using a 25-gauge 1-1/2-inch needle with 1% preservative free lidocaine for a total volume of 10 mls. Under AP and lateral fluorscopic views, 18 gauge 100 mm Bipolar RF needles with a 10 mm active tip were inserted at the L5 dorsal ramus and the lateral aspects of the S1, S2 and S3 foramens and advanced until it touched os. Confirmation of position was then made with a lateral fluoroscopic view to ensure that the tips were posterior to the posterior plate of the sacrum. Motor stimulation at 2 Hz and up to 2V was conducted between sequential probes. There was no observable motor movement in the lower extremities and the patient confirmed this by self-report. After satisfactory motor testing was completed at each level, approximately 0.5 mL of 4% Lidocaine was injected to anesthetize the radiofrequency ablation target. Subsequently, bipolar radiofrequency ablation was carried out at each of the aforementioned locations with a probe temperature set to 90C for 150 seconds. A total of 8 bipolar radiofrequency lesions was done. Following lesioning the needles were removed. The needle insertion site was dressed appropriately. The patient was taken to the recovery room where they were monitored for a brief period of time. They tolerated the procedure well and were discharged home in stable condition with post procedural instructions. Follow-up will be in clinic in 4 weeks. COMPLICATIONS: None
[2019-01-30] MEDS ORDERED: IV FLUID CONTINUATION 1,000 ML IV ONE (10:55)
--- NOTE | 2019-01-30 11:03 | FL ---
EXAMINATION TYPE: FL guided pain mgmt statistic DATE OF EXAM: 01/30/2019 CLINICAL HISTORY: Low back pain. TECHNIQUE: Fluoroscopy. COMPARISON: None. FINDINGS: Fluoroscopic guidance was provided during pain relief procedure performed by Dr. Moore . A total of 8 seconds of fluoroscopic time was utilized during the procedure and 9 spot images are acqui red. Images acquired shows needle localization at several levels in the sacrum. IMPRESSION: As Above.
[2019-01-30 11:31] VITALS: BP 111/71; PULSE 70; RESP 17
== END 2019-01-30 11:31 | disposition home or self-care (01) ==
LOC: ORPAIN 08:53
PROVIDERS: ATTEND Anesthesiology
DX: G89.29 Other chronic pain (principal); M46.1 Sacroiliitis, not elsewhere classified; M47.26 Other spondylosis with radiculopathy, lumbar region; M51.16 Intervertebral disc disorders with radiculopathy, lumbar region; F17.200 Nicotine dependence, unspecified, uncomplicated; Z79.891 Long term (current) use of opiate analgesic
CPT/HCPCS: 64640 ×3; 64635; J2250; J3010; 99152; 99153

== ENCOUNTER → 2019-02-27 | Outpatient (CLI) | payer MEDICARE, OTHER ==
--- NOTE | 2019-03-03 09:02 | P.PAINPG ---
Subjective Progress Note Date: 02/27/19 This is a follow-up visit for this 59 year old male who had chronic low back pain. He is diagnosed with lumbar radiculopathy, lumbar spondylosis with lumbar facet arthropathy, and right sacroiliitis, recently we have right SI joint radiofrequency ablation. He returns today for follow-up. He reports 70% pain relief from this procedure. Currently he rates his bilateral low back pain as 3/10. He states that he no longer has pain radiating to his right lower extremity, which is a big improvement for him. Today, he is complaining of bilateral cervical neck pain radiating to his posterior occipital region and left trapezius region. He's had this pain for 19 years. He describes it as sharp. He has had cervical epidural steroid injections done in 2015 which have helped with this pain. He denies symptoms in upper extremities. He has had no changes in the symptoms since 2015. he denies any motor or sensory deficits he denies any fever or night sweats and that is no change in bowel movement or urination, currently he is using Motrin 600 mg when necessary and Percocet 10/325 every 6 hours when necessary honeys getting prescription refills from Dr. Ibarra. He does report that his Robaxin was recently discontinued. Review of systems is negative for chest pain, shortness of breath, changes in vision, changes in hearing, new onset weakness, abdominal pain, diarrhea, extreme fatigue, malaise, fever, skin changes, homicidal or suicidal ideation, or bowel or bladder incontinence. He does report some ongoing sinus issues. Objective Physical exam: Vitals: Reviewed in EMR GENERAL: Well appearing, in no acute distress PSYCH: Mood and affect is appropriate. Awake, alert, and oriented SKIN: Skin color, texture, turgor normal, no rashes or lesions HEENT: Normocephalic, atraumatic. EOM intact CV: No pedal edema RESP: Respirations are unlabored, no audible wheezing GI: Abdomen non-distended MUSCULOSKELETAL: Bilateral upper and lower extremity strength is normal and symmetric. No atrophy or tone abnormalities are noted. Neck: Tenderness to palpation over the cervical paraspinous muscles bilaterally, worse on left, tenderness to palpation of bilateral trapezius muscles, worse on left. Spurling negative, Turner's sign negative. Pain with neck flexion, extension, or lateral flexion. No obvious deformity or signs of trauma. Extremities: Peripheral joint ROM is full and pain free without obvious instability or laxity in all four extremities. No edema or skin discolorations noted. Gait: Gait is normal NEUR: Bilateral upper extremity coordination and muscle stretch reflexes are physiologic and symmetric. No loss of sensation is noted. Imaging: MRI cervical spine done in April 2013 shows a right-sided disc herniation at C4-5 and central disc herniation at C5-6 with slight narrowing of the anterior subarachnoid space. Assessment and Plan Plan: Assessment and plan=1-lumbar radiculopathy. 2-lumbar degenerative disc disease, 3-lumbar spondylosis with lumbar facet arthropathy. Pain improved after lumbar epidural steroid injections. 4-right sacroiliitis-patient had excellent pain relief after radiofrequency ablation of the right sacroiliac joint 5. Cervical degenerative disc diseasepatient has had excellent benefit from cervical epidural steroid injections done in 2014. He would likely benefit from repeat injection at C7-T1, using a left paramedian approach. We will schedule this procedure today. Medication management: Per Dr. Ibarra Patient was counseled on the importance of smoking cessation for 3 minutes. Patient was counseled to take magnesium glycinate 400 mg dailywhich is available [id number] for muscle spasms. Follow-up: For above-mentioned procedure PQRS Measure Charge Sheet Measure #130: Documentation of Current Meds in Medical Chart: Patient's medications documented in chart Measure #226: Tobacco Use: Screen & Cessation Intervention: Pt screened for tobacco use AND intervention given Measure #111: Pneumonia Vaccination: Pneumococcal vaccine NOT administered or previously given Measure #47: Advance Care Plan: Advance care planning discussed & documented, pt chose/unable to give Measure #412: Opioid Treatment Agreement: No documentation of signed opioid treatment agreement Measure #317: Preventitive Care & Scrn High Bld Press & F/U: Normal blood pressure, f/u not required Measure #128: Body Mass Index (BMI) Screening & Follow-up: BMI documented within normal parameters Measure #131: Pain Assessment & Follow-up: Pain positive & plan documented, Follow-up scheduled Measure #431: Unhealthy Alcohol Use Preventative Care & Scrn: Patient not identified as an unhealthy alcohol user PQRS Narrative: Smoking Status Current every day smoker Pain Intensity [Bilateral 7 Posterior Neck] Pain Intensity [Lower Back] 3 Scale Used Numeric (1 - 10) Hx Alcohol Use (MH) Yes: OCC. Home Medications: Ambulatory Orders Ibuprofen 600 mg PO Q8H PRN 08/24/15 oxyCODONE-APAP 10-325MG [Percocet 10-325 mg] 1 tab PO Q4HR PRN 10/14/18 Controlled Substance Measures - Controlled Substance Measures Is patient prescribed a controlled substance at discharge?: No
== END | disposition home or self-care (01) ==
LOC: PNWHC3 13:12
PROVIDERS: ATTEND Anesthesiology
DX: M50.30 Other cervical disc degeneration, unspecified cervical region (principal); M51.16 Intervertebral disc disorders with radiculopathy, lumbar region; M47.26 Other spondylosis with radiculopathy, lumbar region; M46.96 Unspecified inflammatory spondylopathy, lumbar region; M46.1 Sacroiliitis, not elsewhere classified; F17.200 Nicotine dependence, unspecified, uncomplicated; Z79.891 Long term (current) use of opiate analgesic
CPT/HCPCS: 99211

== ENCOUNTER → 2019-03-06 | Day surgery (SDC) | payer MEDICARE, OTHER ==
[2019-03-05 10:50] VITALS: BMI 24.3
[~2019-03-06] MED LIST changes: +IV FLUID CONTINUATION 1,000 ML IV ONE
[2019-03-06 09:36] VITALS: TEMP 97.2
--- NOTE | 2019-03-06 10:14 | P.PCN ---
Date of Procedure: 03/06/19 Procedure(s) Performed: Diagnosis: Cervical radiculopathy Cervical degenerative disc disease POSTOPERATIVE DIAGNOSIS: Diagnoses: Cervical radiculopathy Cervical degenerative disc disease PROCEDURE Cervical Epidural steroid injection under fluoroscopic guidance at the C7-T1 interspace using left paramedian approach Cervical epidurogram ANESTHESIA: Local with 1% lidocaine 3 ml and IV sedation with Versed and fentanyl, sedation time 14 minutes Fluoroscopy was used for the procedure and images were saved in the radiology portion of the chart. EBL: Minimal PROCEDURE INDICATION: The patient presents with cervical radicular symptoms unresponsive to conservative treatment. PROCEDURE DESCRIPTION / TECHNIQUE: The patient was seen and identified in the preoperative area. Risks, benefits, complications including but not limited to infections ,bleeding ,allergic reaction to the medications ,nerve damage and incomplete pain relief, and alternatives were discussed with the patient. The patient agreed to proceed with the procedure and signed the consent. IV was started, and vital signs were stable. Patient was taken to the OR and time out was completed. The patient was placed in the prone position on procedure table and a pillow was placed under the chest area. The cervical area was prepped and draped in the usual sterile fashion. Conscious sedation was used during the procedure to decrease patients anxiety. Vital signs was monitored during the entire procedure. Using anterior-posterior fluoroscopy, the C7-T1 interlaminar space was identified and the skin over this site was marked and then infiltrated with 1% lidocaine subcutaneously. Subsequently, a 20-gauge Tuohy epidural needle was inserted and advanced toward the epidural space using the loss of resistance technique and guided by AP and 50 oblique fluoroscopy. The correct needle position in the epidural space was verified. After negative aspiration for blood and CSF and in the absence of paresthesias, Isovue 200 2 mL's was injected under live fluoroscopy with good epidural spread. After negative aspiration, a 5 ml mixture containing 10 mg of dexamethasone, 3 mL of preservative free normal saline and 1 mL of 1% lidocaine was injected. Needle was withdrawn intact, skin was cleansed, and bandages were applied. COMPLICATIONS: None DISPOSITION / PLANS: The patient was placed in a supine position and transferred to the recovery area in a stable condition for observation. There was no evidence of lower extremity motor or sensory deficit after the procedure. Patient was discharged from the recovery room after meeting discharge criteria. Home discharge instructions were given to the patient by the staff. The patient will be scheduled for repeat procedure in 4 weeks.
[2019-03-06 10:35] VITALS: BP 106/73; PULSE 61; RESP 18
--- NOTE | 2019-03-06 12:17 | FL ---
Fluoroscopy HISTORY: Pain 9 seconds fluoroscopy time supplied to the referring clinician. 3 intraoperative C-arm images docume nt the procedure. See dictated report from anesthesia.
== END | disposition home or self-care (01) ==
LOC: ORPAIN 09:23
PROVIDERS: ATTEND Anesthesiology
DX: G89.29 Other chronic pain (principal); M50.13 Cervical disc disorder with radiculopathy, cervicothoracic region; M47.26 Other spondylosis with radiculopathy, lumbar region; M46.1 Sacroiliitis, not elsewhere classified; M51.16 Intervertebral disc disorders with radiculopathy, lumbar region; Z88.8 Allergy status to other drugs, medicaments and biological substances; Z91.030 Bee allergy status
CPT/HCPCS: 62321; J2250; J1100; J3010; Q9966; 99152

== ENCOUNTER 2019-04-10 08:20 | Day surgery (SDC) | payer MEDICARE, OTHER ==
[2019-04-08 10:21] VITALS: BMI 24.3
[~2019-04-10 08:20] MED LIST changes: +DEXAMETHASONE SOD PHOSPHATE 10 MG/ML 1 ML VIAL ONE; +IOPAMIDOL M200 10 ML VIAL ONE; -IV FLUID CONTINUATION 1,000 ML IV ONE; +MIDAZOLAM 2 MG/2 ML VIAL ONE; +fentaNYL (PF) 50 MCG/ML 2 ML AMP ONE
[2019-04-10 09:34] VITALS: RESP 16; TEMP 97.7
--- NOTE | 2019-04-10 10:13 | P.PCN ---
Date of Procedure: 04/10/19 Procedure(s) Performed: Diagnosis: Cervical radiculopathy Cervical degenerative disc disease POSTOPERATIVE DIAGNOSIS: Diagnoses: Cervical radiculopathy Cervical degenerative disc disease PROCEDURE Cervical Epidural steroid injection under fluoroscopic guidance at the C7-T1 interspace using left paramedian approach Cervical epidurogram ANESTHESIA: Local with 1% lidocaine 3 ml and IV sedation with Versed and fentanyl, sedation time 9 minutes Fluoroscopy was used for the procedure and images were saved in the radiology portion of the chart. EBL: Minimal PROCEDURE INDICATION: The patient presents with cervical radicular symptoms unresponsive to conservative treatment. This is his second cervical epidural steroid injection. PROCEDURE DESCRIPTION / TECHNIQUE: The patient was seen and identified in the preoperative area. Risks, benefits, complications including but not limited to infections ,bleeding ,allergic reaction to the medications ,nerve damage and incomplete pain relief, and alternatives were discussed with the patient. The patient agreed to proceed with the procedure and signed the consent. IV was started, and vital signs were stable. Patient was taken to the OR and time out was completed. The patient was placed in the prone position on procedure table and a pillow was placed under the chest area. The cervical area was prepped and draped in the usual sterile fashion. Conscious sedation was used during the procedure to decrease patients anxiety. Vital signs was monitored during the entire procedure. Using anterior-posterior fluoroscopy, the C7-T1 interlaminar space was identified and the skin over this site was marked and then infiltrated with 1% lidocaine subcutaneously. Subsequently, a 20-gauge Tuohy epidural needle was inserted and advanced toward the epidural space using the loss of resistance technique and guided by AP and 50 oblique fluoroscopy. The correct needle position in the epidural space was verified. After negative aspiration for blood and CSF and in the absence of paresthesias, Isovue 200 2 mL's was injected under live fluoroscopy with good epidural spread. After negative aspiration, a 5 ml mixture containing 10 mg of dexamethasone, 3 mL of preservative free normal saline and 1 mL of 1% lidocaine was injected. Needle was withdrawn intact, skin was cleansed, and bandages were applied. COMPLICATIONS: None DISPOSITION / PLANS: The patient was placed in a supine position and transferred to the recovery area in a stable condition for observation. There was no evidence of lower extremity motor or sensory deficit after the procedure. Patient was discharged from the recovery room after meeting discharge criteria. Home discharge instructions were given to the patient by the staff. The patient will be scheduled a follow-up in the clinic in 2-4 weeks.
[2019-04-10] MEDS ORDERED: LACTATED RINGERS 1,000 ML IV ONE (10:27)
[2019-04-10 10:37] VITALS: BP 106/63; PULSE 68
--- NOTE | 2019-04-10 11:08 | FL ---
EXAMINATION TYPE: FL guided pain mgmt statistic DATE OF EXAM: 04/10/2019 FLUOROSCOPY Fluoroscopy time of 4 seconds was used during cervical epidural injection. 3 image/s document/s the procedure.
== END 2019-04-10 10:59 | disposition home or self-care (01) ==
LOC: ORPAIN 08:20
PROVIDERS: ATTEND Anesthesiology
DX: M50.10 Cervical disc disorder with radiculopathy, unspecified cervical region (principal); Z88.8 Allergy status to other drugs, medicaments and biological substances
CPT/HCPCS: 62321; J2250; J1100; J3010; Q9966

== ENCOUNTER → 2019-05-08 | Outpatient (CLI) | payer MEDICARE, OTHER ==
[2019-05-08 12:44] VITALS: BP 123/83; PULSE 72; RESP 16
--- NOTE | 2019-05-08 13:22 | P.PAINPG ---
Subjective Progress Note Date: 05/08/19 This is a follow-up visit for this 59 year old male who has chronic low back and neck pain. He is diagnosed with cervical degenerative disc disease, lumbar radiculopathy, lumbar spondylosis with lumbar facet arthropathy, and right sacroiliitis, recently we have cervical epidural steroid injection at C7-T1 2 on 03/06/2019 and 04/10/2019. He returns today for follow-up. He reports 50% relief from this procedure, relief is ongoing. He reports that the pain and numbness into his right arm has completely disappeared after the procedure. Today, he is complaining of bilateral neck pain, rated as 6/10, primarily described as neck stiffness. Pain radiates to bilateral trapezius region. He has been using a TENS machine with good benefit. His medications include Motrin 600 mg when necessary and Percocet 10/325 every 6 hours when necessary, he is getting prescription refills from Dr. Ibarra. Review of systems is negative for chest pain, shortness of breath, changes in vision, changes in hearing, new onset weakness, abdominal pain, diarrhea, extreme fatigue, malaise, fever, skin changes, homicidal or suicidal ideation, or bowel or bladder incontinence. He does report some ongoing sinus issues. Objective Physical exam: Vitals: Reviewed in EMR GENERAL: Well appearing, in no acute distress PSYCH: Mood and affect is appropriate. Awake, alert, and oriented SKIN: Skin color, texture, turgor normal, no rashes or lesions HEENT: Normocephalic, atraumatic. EOM intact CV: No pedal edema RESP: Respirations are unlabored, no audible wheezing GI: Abdomen non-distended MUSCULOSKELETAL: Bilateral upper extremity strength is normal and symmetric. No atrophy or tone abnormalities are noted. Neck: Tenderness to palpation over the cervical paraspinous muscles bilaterally. No obvious deformity or signs of trauma. Extremities: Peripheral joint ROM is full and pain free without obvious instability or laxity in all four extremities. No edema or skin discolorations noted. Gait: Gait is normal NEUR: Bilateral upper extremity coordination and muscle stretch reflexes are physiologic and symmetric. No loss of sensation is noted. Imaging: MRI cervical spine done in April 2013 shows a right-sided disc herniation at C4-5 and central disc herniation at C5-6 with slight narrowing of the anterior subarachnoid space. Assessment and Plan Plan: Assessment and plan=1-lumbar radiculopathy. 2-lumbar degenerative disc disease, 3-lumbar spondylosis with lumbar facet arthropathy. Pain improved after lumbar epidural steroid injections. 4-right sacroiliitis-patient had excellent pain relief after radiofrequency ablation of the right sacroiliac joint 5. Cervical degenerative disc diseasepatient has had excellent benefit from cervical epidural steroid injections Medication management: Per Dr. Ibarra Patient was counseled on the importance of smoking cessation for 3 minutes. Referrals: Patient was given a referral for neck physical therapy Follow-up: As needed PQRS Measure Charge Sheet Measure #130: Documentation of Current Meds in Medical Chart: Patient's medications documented in chart Measure #226: Tobacco Use: Screen & Cessation Intervention: Pt screened for tobacco use AND intervention given Measure #111: Pneumonia Vaccination: Pneumococcal vaccine NOT administered or previously given Measure #47: Advance Care Plan: Advance care planning discussed & documented, pt chose/unable to give Measure #412: Opioid Treatment Agreement: No documentation of signed opioid treatment agreement Measure #317: Preventitive Care & Scrn High Bld Press & F/U: Normal blood pressure, f/u not required Measure #128: Body Mass Index (BMI) Screening & Follow-up: BMI documented within normal parameters Measure #131: Pain Assessment & Follow-up: Pain positive & plan documented, Follow-up scheduled Measure #431: Unhealthy Alcohol Use Preventative Care & Scrn: Patient not identified as an unhealthy alcohol user PQRS Measure Charge Sheet PQRS Narrative: Smoking Status Current every day smoker Hx Alcohol Use (MH) Yes: OCC. Home Medications: Ambulatory Orders Ibuprofen 600 mg PO Q8H PRN 08/24/15 oxyCODONE-APAP 10-325MG [Percocet 10-325 mg] 1 tab PO Q4HR PRN 10/14/18 Controlled Substance Measures - Controlled Substance Measures Is patient prescribed a controlled substance at discharge?: No
== END | disposition home or self-care (01) ==
LOC: PNWHC3 12:14
PROVIDERS: ATTEND Anesthesiology
DX: G89.29 Other chronic pain (principal); M51.16 Intervertebral disc disorders with radiculopathy, lumbar region; M47.26 Other spondylosis with radiculopathy, lumbar region; M46.96 Unspecified inflammatory spondylopathy, lumbar region; M50.30 Other cervical disc degeneration, unspecified cervical region; M46.1 Sacroiliitis, not elsewhere classified; F17.200 Nicotine dependence, unspecified, uncomplicated; Z98.890 Other specified postprocedural states; Z79.899 Other long term (current) drug therapy
CPT/HCPCS: 99211

== ENCOUNTER → 2022-07-12 | Outpatient (CLI) | payer MEDICARE, OTHER ==
--- NOTE | 2022-07-12 12:20 | XR ---
EXAMINATION TYPE: XR cervical spine comp DATE OF EXAM: 07/12/2022 12:16 PM INDICATION: Patient age:Male; 62 years old; Reason for study: M54.2 Neck pain, M54.50 low back pain; PHH. COMPARISON: None TECHNIQUE: The cervical spine was imaged in 4 projections. Frontal, lateral, odontoid and bilateral o blique. FINDINGS: No acute fracture. Grade 1 anterolisthesis of C3 on C4 and mild retrolisthesis of C4 on C5 and C5 on C6. There are osteophytes noted throughout the cervical spine on the anterior and lateral aspects of the vertebral bodies. Multilevel disc space narrowing with endplate sclerosis and anterior osteophyto sis. This is most pronounced at C4-C5 and C5-C6. Pedicles are intact. Soft tissues are within normal limits. The odontoid appears intact. IMPRESSION: 1. No fracture or dislocation. 2. Mild degenerative disc disease changes of the cervical spine.
--- NOTE | 2022-07-12 12:22 | XR ---
EXAMINATION TYPE: XR lumbar spine 2 or 3V DATE OF EXAM: 07/12/2022 CLINICAL HISTORY: Low back pain TECHNIQUE: Three views of the lumbar spine are submitted. COMPARISON: Lumbar spine radiograph 10/25/2018, MRI lumbar spine 10/25/2018 FINDINGS: There are 5 lumbar type vertebral bodies identified. The lumbar spine shows satisfactory alignment w ithout evidence of acute fracture or dislocation. Vertebral body heights are within normal limits. Multilevel disc space narrowing with endplate sclerosis and anterior osteophytosis redemonstrated. Th is is primarily demonstrated at L5-S1, L4-L5, and L1-L2 The overlying soft tissue appears unremarkab le. Vascular sclerosis. Stable sclerotic focus within the right sacrum measuring 9 mm likely represen ting a benign bone island. IMPRESSION: 1. No acute fracture. 2. Similar mild lumbar degenerative disc disease.
== END | disposition home or self-care (01) ==
LOC: RADXRMAIN 11:52
PROVIDERS: ATTEND Physical Medicine & Rehabilitation
DX: M51.36 Other intervertebral disc degeneration, lumbar region (principal); M50.321 Other cervical disc degeneration at C4-C5 level
CPT/HCPCS: 72050; 72100